=== PATIENT | female | born 1975 | race Caucasian/White ===

== ENCOUNTER 2021-01-13 17:32 | Emergency (ER) | payer BC, SELFPAY ==
[2021-01-13 17:42] VITALS: BP 161/80; PULSE 76; RESP 16; TEMP 36.5; O2SAT 100
--- NOTE | 2021-01-13 17:50 | ED.GENADUL_ITS ---
Discharge Plan Disposition Patient Disposition: HOME Condition: Stable Discharge Details Clinical Impression: Diverticulitis Primary Care Provider: Unknown,Unknown ED Provider: Kim Howell Home Meds and New Rx's Prescriptions: New amoxicillin-pot clavulanate [Augmentin] 875-125 mg tablet 1 tab PO BID 9 Days Qty: 18 RF: 0 Continued spironolactone 100 mg Tablet 100 mg PO DAILY RF: 0 omeprazole 40 mg Capsule,Delayed Release(Dr/Ec) 40 mg PO BID RF: 0 dextroamphetamine-amphetamine [Adderall XR] 30 mg Capsule,Extended Release 24hr 40 mg PO DAILY RF: 0 gabapentin 100 mg Tablet 100 mg PO BID RF: 0 Discharge Instructions Instructions: Amoxicillin/Clavulanate Potassium (By mouth), Diverticulitis (ED) Referrals: Sunitha Grant [OSTEOPATHIC DOCTOR] - Discharge Data Discharge Date/Time-TO BE ENTERED AT DEPARTURE: 01/13/21 20:30 Medical Decision Making Patient is a pleasant 45 year old female presenting today with c/c of left sided abdominal pain and dark stool that began at 2300 l;ast night. States she has had some gagging but that this is likely associated with her acid reflux. Denies vomiting. Denies vaginal discharge or change in urinary habits. STates it feels like her diverticulitis she has experienced in adriana past. Last had an episode 1.5 years ago. 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 Had partial colectomy and hysterectomy. On exam, patient appears nontoxic. VS stable. Lungs clear. Normal cardiac exam. Abdomen signficant for LLQ pain, no guardign or peritoneal findings. Concerned for possible recurrent diverticulitis. With her history, my concern for complications is high. Plan for CT and labs. Will give tylenol for pain. She is nauseated but feels that this is associated with GERD, will give protonix IV for acid reflux. Labs reviewed. Concerning for leukocytosis. Patient appears dehydrated. Shei s receiving IV hydration. FINDINGS: Lungs: The visualized portions of the lung bases are normal. Liver: Multiple well-circumscribed hypodense lesions throughout the liver compatible with hepatic cysts. Gallbladder and bile ducts: Normal. No calcified stones. No ductal dilation. Pancreas: Normal. No ductal dilation. Spleen: Normal. No splenomegaly. Adrenal glands: Normal. No mass. Kidneys and ureters: Normal. No hydronephrosis. Stomach and bowel: There is a segment of descending colon that demonstrates wall thickening consistent with moderate acute colitis/diverticulitis. Appendix: No evidence of appendicitis. Intraperitoneal space: Unremarkable. No free air. No significant fluid collection. Vasculature: Unremarkable. No abdominal aortic aneurysm. Lymph nodes: Unremarkable. No enlarged lymph nodes. Urinary bladder: Unremarkable as visualized. Reproductive: Unremarkable as visualized. Bones/joints: Unremarkable. No acute fracture. Soft tissues: Unremarkable. IMPRESSION: Moderate acute colitis/diverticulitis of the splenic flexure and descending colon. As an underlying colonic malignancy cannot be excluded, a follow-up examination after a course of treatment is recommended if clinically warranted. Discussed findings with the patient. She reports feeling much improved after the Tylenol and Protonix. Feels that her nausea has completely subsided and associated with her acid reflux. Patient is eligible to be outpatient treatment at this time. She states that she has done poorly with the Flagyl in the past but has not had a multitude of side effects. Will treat with Augmentin. Encourage hydration. She will continue with her omeprazole for her acid reflux. Encourage close follow-up with primary care next week. Patient received primary care as well as general surgery follow-up at [facility]. I have asked our diagnostic radiology department to send all of her images to [facility] for their library. Strict return precautions were discussed. All of her questions and concerns were addressed, she is in agreement with this plan. HPI General Mode of arrival: ambulatory . Date/Time Provider Initiated Documentation: 01/13/21 17:50 . Limitations to Documentation: no limitations . Information obtained by: patient and RN notes reviewed . History of Present Illness 45 year old F presents to the emergency department with the chief complaint of LLQ pain, described as moderate and similar to prior episodes (similar to previous diverticulitis episodes in the past), with intensity rated at 7. Quality is described as aching, and is localized to the abdomen. Patient reports no radiation. Patient started experiencing this hour(s) and it has been constant. No relieving factors improve symptom(s), No exacerbating factors reported . Patient notes fever/chills (chills, no known fevers), loss of appetite and nausea/vomiting (nausea, no vomiting); denies chest pain, cough, rash and shortness of breath. Patient did receive the following treatments prior to arrival, none Related Data Home Medications Medication Instructions Recorded Confirmed amoxicillin-pot clavulanate 1 tab PO BID 9 Days #18 tab 01/13/21 [Augmentin] dextroamphetamine-amphetamine 40 mg PO DAILY 01/13/21 01/13/21 [Adderall XR] gabapentin 100 mg PO BID 01/13/21 01/13/21 omeprazole 40 mg PO BID 01/13/21 01/13/21 spironolactone 100 mg PO DAILY 01/13/21 01/13/21 Previous Rx's Medication Instructions Recorded amoxicillin-pot clavulanate 1 tab PO BID 9 Days #18 tab 01/13/21 [Augmentin] Allergies Allergy/AdvReac Type Severity Reaction Status Date / Time Sulfa (Sulfonamide Allergy Unverified 01/13/21 17:48 Antibiotics) bees Allergy Uncoded 01/13/21 17:48 General Stated Complaint: Abd Prob MONICA: 3 Review of Systems Constitutional Constitutional: Reports as per HPI, Denies fatigue, Denies fever(s) and Denies headache(s) ENT Ears, Nose, Mouth, and Throat: Denies headache(s) Cardiovascular Cardiovascular: Reports as per HPI, Denies chest pain and Denies dyspnea Respiratory Respiratory: Reports as per HPI, Denies cough and Denies dyspnea Gastrointestinal Gastrointestinal: Reports as per HPI Musculoskeletal Musculoskeletal: Reports as per HPI and Denies back pain Integumentary/Breasts Skin/Breast: Reports as per HPI and Denies rash Neurologic Neurologic: Reports as per HPI and Denies headache(s) Endocrine Endocrine: Denies fatigue [facility] Social History Smoking/Tobacco Use Status: Former Tobacco Use Smoking risk assessment performed?: Yes Substance use type: does not use Exam Const General: cooperative, healthy appearing, uncomfortable, no acute distress, well developed and anxious Nutritional Appearance: average body habitus and well nourished Orientation: alert and awake Resp Effort & Inspection: normal respiratory effort, able to speak in complete sentences and no respiratory distress Auscultation: clear to auscultation bilaterally, no rales, no rhonchi and no wheezes Cardio Rate: regular rate Rhythm: regular rhythm Heart Sounds: S1 normal and S2 normal GI Inspection: normal to inspection Palpation: soft, no hepatosplenomegaly, not firm, no guarding and tender in the LLQ; with no rebound tenderness Percussion: normal to percussion Auscultation: normal bowel sounds Back/Spine/Pelvis Back: no CVA tenderness Skin General skin exam: no rashes or lesions noted Trauma: no lacerations or abrasions Neuro General: patient alert and patient awake Cognition: normal cognition Speech: speech normal Gait: normal gait Psych Appearance: grossly normal and well kempt Mental Status: mental status grossly normal Speech and Movement: speech and movement normal Course Vital Signs Vital signs: Vital Signs Temperature 36.5 C 01/13/21 17:42 Pulse 76 01/13/21 17:42 Respiratory Rate 16 01/13/21 17:42 Blood Pressure 161/80 H 01/13/21 17:42 Pulse Oximetry 100 01/13/21 17:42 Temperature 36.5 C 01/13/21 17:42 Temperature Source Skin 01/13/21 17:42 Pulse 76 01/13/21 17:42 Respiratory Rate 16 01/13/21 17:42 Respiratory Effort Non-Labored 01/13/21 17:42 Blood Pressure 161/80 H 01/13/21 17:42 Blood Pressure Position Sitting 01/13/21 17:42 Pulse Oximetry 100 01/13/21 17:42 Oxygen Delivery Method Room Air 01/13/21 17:42 Oxygen Flow Rate 0 01/13/21 17:42 Pain Level 7 01/13/21 17:42
--- NOTE | 2021-01-13 18:00 | DI.CT_ITS ---
Exam(s) CT ABDOMEN PELVIS W EXAM: CT ABDOMEN PELVIS W CLINICAL HISTORY: left sided pain, hx of diverticulitis. TECHNIQUE: Imaging Protocol: Axial computed tomography images with coronal and sagittal reformatted images were created and reviewed CONTRAST MATERIAL: Intravenous: Omnipaque 100cc Oral: None COMPARISON: No exams were available for comparison FINDINGS: VISUALIZED LUNG BASES: No nodules nor pleural effusions evident. ABDOMEN: There is no ascites. LIVER: There are multiple well-defined hypodensities in the liver. The largest of these is in the le ft hepatic lobe and measures 3.6 by 3.5 cm. These have the appearance of benign cysts. There is no dilatation of intrahepatic ducts. GALLBLADDER/BILIARY: No obvious gallbladder pathology. CBD is not dilated. PANCREAS: No evidence of pancreatic mass nor dilatation of the pancreatic duct. SPLEEN: Spleen is not enlarged. No obvious intrasplenic lesions. Splenic and portal veins are paten t. ADRENALS: There are no significant adrenal masses. KIDNEYS:No cysts evident. No solid renal masses. No calculi nor hydronephrosis.. ABDOMINAL AORTA: Abdominal aorta is not enlarged. LYMPH NODES:There is no retroperitoneal nor paraaortic adenopathy. ABDOMINAL WALL: No evidence of significant anterior abdominal wall nor inguinal hernia. GI: There is abnormal thickening of the distal transverse colon and splenic flexure of the colon and part of the descending-left colon. Suspicious for colitis. There are no obvious diverticuli in the colon at this exact level. There has also been partial sigmoid resection. No evidence of obvious le ak at the anastomosis. No abnormal fluid collection. No free air. PELVIS: GI: No evidence of appendicitis. LYMPH NODES: There is no intrapelvic nor inguinal adenopathy. REPRODUCTIVE: Uterus is surgically absent. No abnormal adnexal masses. No free fluid in the pelvis. URINARY BLADDER: No calculi nor obvious masses evident OSSEOUS: No significant osseous lesions. IMPRESSION: 1. There is circumferential abnormal thickening of the colon at, proximal 2, and distal to the spleni c flexure, consistent with colitis. Cannot exclude underlying malignancy and will require colonoscop y when clinically appropriate. 2. There has been partial sigmoid resection. There is no evidence of abnormal collection in the vici nity of the anastomosis. 3. Multiple benign cysts are noted in the liver. No evidence of intrahepatic abscess in this patient apparently has a history of prior diverticulitis. RADIATION DOSE DELIVERED: 818.47mGy.cm Total DLP DATA REPOSITORY: All CT scans at this facility are submitted to the National Radiology Data Registry (NRDR) Dose Index Registry (DIR) with the [employer] ([employer]). RADIATION OPTIMIZATION: All CT scans at this facility use at least one of these dose optimization te chniques: automated exposure control; mA and/or kV adjustment per patient size (includes targeted exa ms where dose is matched to clinical indication); or iterative reconstruction.
[2021-01-13 18:15] LABS: Bilirubin Small (Negative); Blood Negative (Negative); Clarity Clear (Clear); Glucose Negative (Negative); Ketones 80 mg/dL (Negative); Leukocyte Esterase Negative (Negative); Nitrite Negative (Negative); Specific Gravity >= 1.030 (1.005-1.025); Urobilinogen 0.2 EU/dL (Up TO 0.2); pH 5.5 (5-8)
[2021-01-13 18:16] LABS: Abs Immature Grans 0.06 10^3/uL (0.0-0.06); Basophils % 0.3; HCT 48.4 % (36.0-46.0); HGB 16.2 g/dL (11.2-15.7); Immature Grans % 0.4; Lymphocytes % 25.2; MCH 28.6 pg (27.0-33.0); MCHC 33.5 % (32.0-36.0); MCV 85.4 fL (80-95); MPV 9.1 fL (8.0-11.0); Monocytes % 5.5; Neutrophils % 67.6; Nucleated RBC 0 %; Platelet Count 470 10^3/uL (130-400); RBC 5.67 10^6/uL (3.93-5.22); RDW 12.6 % (11.7-14.6); RDW-SD 39.2 fL; WBC 14.47 10^3/uL (4.4-10.8)
[2021-01-13 18:17] LABS: Absolute Basophil Count 0.04 10^3/uL (0.0-0.2); Absolute Eosinophil Count 0.14 10^3/uL (0.0-0.7); Absolute Lymphocyte Count 3.65 10^3/uL (1.2-3.4); Absolute Neutrophil Count 9.78 10^3/uL (1.2-6.7)
[2021-01-13] MEDS: Normal Saline Flush 10 ML SYR IVP ×2 (18:22→19:55)
[2021-01-13] MEDS: Normal Saline 1,000 ML 1000 ML IV (18:22)
[2021-01-13 18:31] LABS: Lipase 87 U/L (73-393); Magnesium 2.3 mg/dL (1.8-2.4)
[2021-01-13] MEDS: ACETAMINOPHEN 1,000 MG/100 ML BTL 400 MG (18:31)
[2021-01-13 18:34] LABS: ALT 15 U/L (14-59); AST 13 U/L (15-37); Alkaline Phosphatase 99 U/L (46-116); Anion Gap 9.6 mmol/L (3-11); BUN 13 mg/dL (7-18); Bilirubin, Total 0.7 mg/dL (0.2-1.0); CO2 29.4 mmol/L (21.0-32.0); CREATININE 0.6 mg/dL (0.55-1.02); Calcium 9.8 mg/dL (8.5-10.1); Chloride 99 mmol/L (98-107); Glucose 117 mg/dL (74-106); Potassium 3.5 mmol/L (3.5-5.1); Sodium 138 mmol/L (136-145); Total Protein 9.5 g/dL (6.4-8.2)
[2021-01-13] MEDS: Pantoprazole 40 MG VIAL IVP (18:34)
[2021-01-13] MEDS: Omnipaque 350 MG/ML 100 ML BTL IJ (19:54)
[2021-01-13] MEDS: Normal Saline - Diluent 50 ML VIAL IV (19:54)
--- NOTE | 2021-01-13 19:59 | DI.VRAD_ITS ---
PROCEDURE INFORMATION: Exam: CT Abdomen And Pelvis With Contrast Exam date and time: 01/13/2021 6:02 PM Age: 45 years old Clinical indication: Other: Left sided abdominal pain, HX of diverticulitis TECHNIQUE: Imaging protocol: Computed tomography of the abdomen and pelvis with contrast. Radiation optimization: All CT scans at this facility use at least one of these dose optimization techniques: automated exposure control; mA and/or kV adjustment per patient size (includes targeted exams where dose is matched to clinical indication); or iterative reconstruction. Contrast material: OMNIPAQUE 350; Contrast volume: 100 ml; Contrast route: INTRAVENOUS (IV); COMPARISON: No relevant prior studies available. FINDINGS: Lungs: The visualized portions of the lung bases are normal. Liver: Multiple well-circumscribed hypodense lesions throughout the liver compatible with hepatic cysts. Gallbladder and bile ducts: Normal. No calcified stones. No ductal dilation. Pancreas: Normal. No ductal dilation. Spleen: Normal. No splenomegaly. Adrenal glands: Normal. No mass. Kidneys and ureters: Normal. No hydronephrosis. Stomach and bowel: There is a segment of descending colon that demonstrates wall thickening consistent with moderate acute colitis/diverticulitis. Appendix: No evidence of appendicitis. Intraperitoneal space: Unremarkable. No free air. No significant fluid collection. Vasculature: Unremarkable. No abdominal aortic aneurysm. Lymph nodes: Unremarkable. No enlarged lymph nodes. Urinary bladder: Unremarkable as visualized. Reproductive: Unremarkable as visualized. Bones/joints: Unremarkable. No acute fracture. Soft tissues: Unremarkable. IMPRESSION: Moderate acute colitis/diverticulitis of the splenic flexure and descending colon. As an underlying colonic malignancy cannot be excluded, a follow-up examination after a course of treatment is recommended if clinically warranted. Dictated and Authenticated by: Justo Walden MD. Ordering:MERLIN Alvarez MD
[2021-01-13 20:25] VITALS: BP 118/61; PULSE 70; TEMP 36.2; O2SAT 98
[2021-01-13 20:30] VITALS: BP 118/61; PULSE 70; RESP 16; TEMP 36.2; O2SAT 98
== END 2021-01-13 20:30 | disposition home or self-care (01) ==
PROVIDERS: Emergency Provider Physician Assistant
DX: K57.32 Diverticulitis of large intestine without perforation or abscess without bleeding (principal)
CPT/HCPCS: 36415; 80053; 83690; 96361; 96375; 99285; 74177; 81003; 83605; 83735; 85025; 99284; J0131; J3490